=== PATIENT | male | born 1950 | race Hispanic/Latino ===

== ENCOUNTER → 2017-09-13 | Outpatient (CLI) | payer OTHER | END | disposition home or self-care (01) | LOC: RAH 09:02 | PROVIDERS: ATTEND Family Medicine | DX: R42 Dizziness and giddiness (principal) | CPT/HCPCS: 93306 ==

== ENCOUNTER 2021-03-24 05:50 | Day surgery (SDC) | payer MEDICARE ==
[~2021-03-24] VITALS: Ht 170.2 cm; Wt 165.6 kg
[~2021-03-24 05:50] MED LIST: RIVA20TA PO
[2021-03-24] MEDS ORDERED: 0.9%NACL 1000ML 1,000 ML IV ONE (06:18)
[2021-03-24 06:37] VITALS: BP 153/71
[2021-03-24] MEDS ORDERED: PROPOFOL 10 MG/ML 20ML VIAL IV ONE ×2 (07:31)
[2021-03-24] MEDS ORDERED: LIDOCAINE HCL 1% 20 ML VIAL ONE (07:31)
[2021-03-24 08:05] VITALS: BP 90/49
[2021-03-24 08:10] VITALS: BP 99/57
[2021-03-24 08:15] VITALS: BP 108/53
[2021-03-24 08:20] VITALS: BP 105/52
[2021-03-24 08:35] VITALS: BP 115/55
== END 2021-03-24 08:35 | disposition home or self-care (01) ==
LOC: ENDO 05:50 → DAH 05:50 → ENDO 08:35
PROVIDERS: ATTEND Internal Medicine Gastroenterology
DX: Z12.11 Encounter for screening for malignant neoplasm of colon (principal); Z20.822 Contact with and (suspected) exposure to COVID-19; K22.2 Esophageal obstruction; K63.5 Polyp of colon; K21.9 Gastro-esophageal reflux disease without esophagitis; K29.70 Gastritis, unspecified, without bleeding; K44.9 Diaphragmatic hernia without obstruction or gangrene; E11.9 Type 2 diabetes mellitus without complications; I25.10 Atherosclerotic heart disease of native coronary artery without angina pectoris; E78.5 Hyperlipidemia, unspecified; F32.9 Major depressive disorder, single episode, unspecified; F41.9 Anxiety disorder, unspecified; M19.90 Unspecified osteoarthritis, unspecified site; I48.20 Chronic atrial fibrillation, unspecified; E66.01 Morbid (severe) obesity due to excess calories; Z79.01 Long term (current) use of anticoagulants; Z79.84 Long term (current) use of oral hypoglycemic drugs; Z79.899 Other long term (current) drug therapy; Z98.890 Other specified postprocedural states; Z80.0 Family history of malignant neoplasm of digestive organs; Z95.1 Presence of aortocoronary bypass graft; Z86.010 Personal history of colon polyps
CPT/HCPCS: 43239; 43249; 45380; 45385; 82948 ×2; 87635; 88305; 88342; A4215 ×2; A4221; A4222; A4223; A4606; A4620; A4663; C9803; J2704 ×2; J7030

== ENCOUNTER → 2023-01-03 | Outpatient (CLI) | payer MEDICARE ==
[~2023-01-03] MED LIST changes: +LIDOCAINE HCL 4% LTA SOL 4 ML VIAL TP ONE
== END | disposition home or self-care (01) ==
LOC: WHH 11:01
PROVIDERS: ATTEND Nurse Practitioner Family
DX: I87.319 Chronic venous hypertension (idiopathic) with ulcer of unspecified lower extremity (principal); E11.622 Type 2 diabetes mellitus with other skin ulcer; L97.811 Non-pressure chronic ulcer of other part of right lower leg limited to breakdown of skin; I89.0 Lymphedema, not elsewhere classified; I48.20 Chronic atrial fibrillation, unspecified; I25.10 Atherosclerotic heart disease of native coronary artery without angina pectoris; E78.5 Hyperlipidemia, unspecified; M19.90 Unspecified osteoarthritis, unspecified site; K21.9 Gastro-esophageal reflux disease without esophagitis; E66.01 Morbid (severe) obesity due to excess calories; F41.9 Anxiety disorder, unspecified; F32.9 Major depressive disorder, single episode, unspecified; F17.210 Nicotine dependence, cigarettes, uncomplicated; Z68.43 Body mass index [BMI] 50.0-59.9, adult; Z95.1 Presence of aortocoronary bypass graft; Z86.010 Personal history of colon polyps; Z79.01 Long term (current) use of anticoagulants; Z79.84 Long term (current) use of oral hypoglycemic drugs; Z79.899 Other long term (current) drug therapy
CPT/HCPCS: G0463

== ENCOUNTER → 2024-03-09 | Outpatient (CLI) | payer OTHER ==
[~2024-03-09] MED LIST changes: -LIDOCAINE HCL 4% LTA SOL 4 ML VIAL TP ONE
== END | disposition home or self-care (01) ==
LOC: RAH 14:26
PROVIDERS: ATTEND Family Medicine
DX: R10.31 Right lower quadrant pain (principal)
CPT/HCPCS: 76882

== ENCOUNTER 2024-04-04 05:57 | Day surgery (SDC) | payer OTHER ==
[~2024-04-04] VITALS: Ht 170.2 cm; Wt 167.8 kg
[2024-04-04] VITALS (9 sets, daily range): BP systolic 99–153; BP diastolic 56–74; PULSE 67–80; RESP 15–17; TEMP 96.6–98
[2024-04-04] MEDS ORDERED: 0.9%NACL 1000ML 0 ML IV ONE (06:04)
[2024-04-04] MEDS ORDERED: 0.9%NACL 1000ML 1,000 ML IV ONE (06:04)
[2024-04-04] MEDS: 0.9%NACL 1000ML 1,000 ML IV ONE (07:51)
== END 2024-04-04 10:00 | disposition home or self-care (01) ==
LOC: ENDO 05:57 → DAH 05:57 → ENDO 10:00
PROVIDERS: ATTEND Internal Medicine Gastroenterology
DX: Z12.11 Encounter for screening for malignant neoplasm of colon (principal); D12.3 Benign neoplasm of transverse colon; K29.50 Unspecified chronic gastritis without bleeding; K22.2 Esophageal obstruction; K31.89 Other diseases of stomach and duodenum; R13.10 Dysphagia, unspecified; K44.9 Diaphragmatic hernia without obstruction or gangrene; I48.20 Chronic atrial fibrillation, unspecified; I25.10 Atherosclerotic heart disease of native coronary artery without angina pectoris; E11.9 Type 2 diabetes mellitus without complications; F41.9 Anxiety disorder, unspecified; J44.9 Chronic obstructive pulmonary disease, unspecified; F32.A Depression, unspecified; E66.9 Obesity, unspecified; E78.5 Hyperlipidemia, unspecified; M19.90 Unspecified osteoarthritis, unspecified site; Z95.1 Presence of aortocoronary bypass graft; Z80.0 Family history of malignant neoplasm of digestive organs; Z86.0100 Personal history of colon polyps, unspecified; Z79.899 Other long term (current) drug therapy
CPT/HCPCS: 45385; 43239; 43248; 82948; J7030; A4615; A4215 ×2; A4223; A4222; A4221; A4663; A4606

== ENCOUNTER 2024-07-07 14:24 | Emergency (ER) | payer OTHER ==
[~2024-07-07] VITALS: Ht 170.2 cm; Wt 169.6 kg
[2024-07-07] MEDS: NEOMY SULF/BACITRA/POLYMYXIN B 1 EACH PACKET TP STA (16:58)
--- NOTE | 2024-07-07 17:57 | HMCIMG ---
ELBOW 2VWS LT INDICATION: left elbow pain TECHNIQUE: ELBOW 2VWS LT. FINDINGS/IMPRESSION: No displaced fracture or dislocation is seen. Correlate clinically. There is no joint effusion or soft tissue swelling. No radiopaque foreign body is identified.
--- NOTE | 2024-07-07 18:32 | ERN ---
ED Note History of Present Illness Stated Complaint: WOUND CHECK Chief Complaint: Wound Check Time Seen by MD: 16:58 Time Seen by Midlevel: 17:00 Dictation: 73-year-old male with a history of hypertension diabetes and cholesterol coming in for mechanical fall landing on his left side, patient says he hit his left elbow against the wall and now has a skin tear and wanted to be evaluated. Denies any head injury, no LOC, patient was moving all extremities in triage assessment. Allergies: Coded Allergies: No Known Drug Allergies (Unverified Allergy, Unknown, 10/20/17) Home Meds Reported Medications Rivaroxaban (Xarelto) 20 Mg Tablet, 20 MG PO DAILY, TAB 03/23/21 Past Medical History Past Medical History: Arthritis, Heart Disease, Hypertension Surgical History: CABG Surgical History Other: RT SHOULDER SX Review of System Dictation Constitutional: Negative for fever,chills, and weight loss Eyes: Negative for injury, pain,redness, and discharge ENT: Negative for injury,pain or swelling Cardiovascular: Negative for chest pain, palpitations, and edema Respiratory: Negative for shortness of breath, cough, and wheezing, Abdomen/GI: Negative for abdominal pain, nausea, vomiting, diarrhea, and constipation Back: Negative for injury and pain : Negative for injury, bleeding and discharge MS/Extremity: Negative for injury and deformity skin tear to the left elbow Skin: Negative for rash, and discoloration Neuro: Negative for headache, weakness, numbness, tingling, and seizure Psych: Negative for suicide ideation, homicidal ideation, and hallucinations Review of Systems: was completed Initial Vital Sign VS Vital Signs Date Time Temp Pulse Resp B/P (MAP) Pulse Ox O2 Delivery O2 Flow Rate FiO2 07/07/24 15:11 98.2 76 18 153/69 97 Room Air 0 07/07/24 19:53 21 Physical Exam Dictation General: awake, alert, NAD Head/Face: Normocephalic, atraumatic Eyes: PERRL, EOMI, vision at baseline ENT: oral cavity clear, TMs clear, no signs of infection Neck: Trachea midline, supple, no nuchal rigidity Cardiovascular: RRR, normal S1/S2, No MRGs, no JVD Respiratory: CTAB, no respiratory distress, No rales or wheezes Abdomen: Soft, non-tender, non-distended, normal bowel sounds, no guarding or rebound. Skin: Warm, dry, normal turgor, no rash skin tear to the left upper forearm MS/Extremity: Pulses equal, no cyanosis, neurovascular intact, FROM Neuro: COAx4, GCS 15, strength 5/5, CN 2-12 intact, normal cerebellar exam, normal gait, Psych: Normal behavior, mood, and affect normal Results (Laboratory/Radiology) X-RAY Comment: [facility] [id number] [place] [address] IMAGING REPORT Signed PATIENT: KARENA PETTY MR#: [id number] : 1950 SEX: M AGE: 73 LOCATION: [facility] ORDER 01 STATUS: [facility] REPORT#: [id number] SERVICE 00 REASON: left elbow pain ORDERING PHYSICIAN: ALFONSO MATHIS NP PROCEDURE: [id number] - ELBOW 2VWS LT ELBOW 2VWS LT INDICATION: left elbow pain TECHNIQUE: ELBOW 2VWS LT. FINDINGS/IMPRESSION: No displaced fracture or dislocation is seen. Correlate clinically. There is no joint effusion or soft tissue swelling. No radiopaque foreign body is identified. DICTATED BY: ZECHARIAH ALBARRAN MD DATE: 07/07/241754 ELECTRONICALLY SIGNED BY: ZECHARIAH ALBARRAN MD DATE: 07/07/241756 ED Course ED Course Orders Procedure Category Date Status Time Neomy PHA 07/07/24 Complete Sulf/Bacitra/Polymyxin 16:58 *Nursing CPOE 07/07/24 Transmitted Communication: 16:58 Elbow 2vws Lt RAD 07/07/24 Resulted 17:01 Current Medications Medications (Trade) Dose Ordered Sig/Gianni Route PRN Reason Start Time Stop Time Status Last Admin Dose Admin Neomycin/ Polymyxin/ Bacitracin (Triple Antibiotic Ointment) 1 appl ONCE STAT TP 07/07/24 16:58 07/07/24 17:00 DC 07/07/24 16:58 Vital Signs Date Time Temp Pulse Resp B/P (MAP) Pulse Ox O2 Delivery O2 Flow Rate FiO2 07/07/24 19:53 97.7 72 18 147/63 100 Room Air* 0 21 07/07/24 15:11 98.2 76 18 153/69 97 Room Air 0 Medical Decision Making MDM MDM: 73-year-old male with a history of hypertension diabetes and cholesterol coming in for mechanical fall landing on his left side, patient says he hit his left elbow against the wall and now has a skin tear and wanted to be evaluated. Denies any head injury, no LOC, patient was moving all extremities in triage assessment. On physical exam patient has clear bilateral lung sounds, abdomen is soft and nondistended, no obvious deformities. Patient has full range of motion to all extremities. Neurologically intact. X-ray of the elbow shows no acute findings. Triple antibiotic and nonadherent bandage applied to the patient. PRIOR TO WOUND CARE AND DISCHARGE PATIENT NOW BEGAN TO COMPLAIN OF LEF T WRIST PAIN, PATIENT IF HE WOULD LIKE A X-RAY HE SAID FOR WHAT SO I CAN BE HERE 6 HOURS, REFUSED X-RAY. Educated on wound care and to follow up with PCP in 1-2 days. Differential diagnosis: Skin tear, elbow dislocation, elbow fracture, elbow contusion Rationale: Tests considered and ordered secondary to shared decision making include: Previous outside records reviewed: Old ER visits. Risk of complication and/or morbidity or mortality of patient management: None Medications-Per medication reconciliation Need for hospitalization: Patient does not meet criteria for hospitalization. Need for emergency major/minor surgery: No There are no social concerns with this patient. Prescription drug management Prescriptions will include symptomatic care Patient's prior external medical records from other ER visits were reviewed by me as indicated. Prior testing and results from previous visits were reviewed. Prior tests were taken into account with medical decision making and resource utilization, independent historian/historians were used to obtain complete medical history. I independently interpreted the test that were performed, results were reviewed by me and considered findings on radiology if ordered. Medical management and examination interpretation discussions were had by me with other qualified healthcare professionals as indicated for the patient's care. DX & DISP Disposition: Discharge Departure Impression: Primary Impression: Elbow contusion Additional Impression: Skin tear of elbow without complication Condition: Stable Additional Instructions: You can apply triple antibiotic [id number] as needed to the skin tear. Cleaned with soap and water. Maintain dry. Follow up with PCP in 1-2 days. Referrals: ISAIAH PURI MD (PCP) I have reviewed the case, and I agree with, Diagnosis and Plan ALFONSO MATHIS NP Jul 07, 2024 18:32
--- NOTE | 2024-07-07 19:48 | NUR ---
AILYN APPLIED. NON ADHERENT DRESSING AND KERLEX ORDERED. PT C/O SWELLING TO LEFT WRIST. DB INFORMED
[2024-07-07 19:53] VITALS: BP 147/63; PULSE 72; RESP 18; TEMP 97.7; O2SAT 100
--- NOTE | 2024-07-07 19:53 | NUR ---
T UPSET AND AGGITATED ABOUT TEREATMENT AND WAIT TIME
--- NOTE | 2024-07-07 19:55 | NUR ---
PER DB, OK TO DISCHARGE PATIENT
== END 2024-07-07 19:57 | disposition home or self-care (01) ==
LOC: EDH 14:24
DX: S51.012A Laceration without foreign body of left elbow, initial encounter (principal); M19.90 Unspecified osteoarthritis, unspecified site; I10 Essential (primary) hypertension; Z79.01 Long term (current) use of anticoagulants; Z95.1 Presence of aortocoronary bypass graft; W18.39XA Other fall on same level, initial encounter; Y93.89 Activity, other specified; Y92.89 Other specified places as the place of occurrence of the external cause; Y99.8 Other external cause status
CPT/HCPCS: 73070; 99284

== ENCOUNTER → 2024-11-30 | Outpatient (CLI) | payer OTHER ==
[2024-11-30 15:29] LABS: CREATININE 0.8 mg/dL (0.5-1.3)
== END | disposition home or self-care (01) ==
LOC: LAB 14:40
PROVIDERS: ATTEND Student in an Organized Health Care Education/Training Program
DX: K42.9 Umbilical hernia without obstruction or gangrene (principal)
CPT/HCPCS: 36415; 82565; 84520

== ENCOUNTER → 2024-12-06 | Outpatient (CLI) | payer OTHER ==
[~2024-12-06] MED LIST changes: +IOHEXOL 350 MG/ML 100ML INFUS..BTL IV ONE
--- NOTE | 2024-12-06 09:37 | HMCIMG ---
CT ABDOMEN/PELVIS W/CONTRAST HISTORY: Umbilical hernia COMPARISON: None TECHNIQUE: Multiple sequential axial images of the abdomen and pelvis were obtained from the dome of the diaphragm through symphysis pubis. Patient was not given contrast through intravenous route. Oral contrast was not given. FINDINGS: No pleural effusion is seen bilaterally. There is no evidence of parenchymal disease or pulmonary nodule of the visualized lower lungs. Degenerative changes of the thoracolumbar spine are present. The heart is not enlarged. The study is limited due to patient's large body habitus. There is hypodense nodule in the right hepatic lobe measuring 2.8 cm the differential diagnosis include hemangioma with mass lesion not excluded. Gallstone is seen in the gallbladder. There is mild diverticulosis. There are extensive subcutaneous soft tissue stranding in the medial aspect of the right upper thigh cellulitis cannot excluded. There is mild scoliosis. The liver, spleen, adrenal glands and pancreas are otherwise unremarkable. There is no evidence of hydronephrosis bilaterally. No evidence of renal stone is seen. Fecal material is seen in the colon. There are normal size retroperitoneal and mesenteric lymph nodes. No ascites is seen. Atherosclerotic changes are present. Pelvic sidewalls are symmetric bilaterally. Bladder is well distended without wall thickening. IMPRESSION: 1. The study is limited due to patient's large body habitus. There is hypodense nodule in the right hepatic lobe measuring 2.8 cm the differential diagnosis include hemangioma with mass lesion not excluded. Gallstone is seen in the gallbladder. There is mild diverticulosis. There are extensive subcutaneous soft tissue stranding in the medial aspect of the right upper thigh cellulitis cannot excluded. There is mild scoliosis. CT was performed with one or more following dose reduction techniques: automated exposure control, adjustment of the mA and kv according to patient's size, or use of a iterative reconstruction technique.
== END | disposition home or self-care (01) ==
LOC: RAH 07:34
PROVIDERS: ATTEND Student in an Organized Health Care Education/Training Program
DX: K57.90 Diverticulosis of intestine, part unspecified, without perforation or abscess without bleeding (principal); K80.20 Calculus of gallbladder without cholecystitis without obstruction; K42.9 Umbilical hernia without obstruction or gangrene; L03.119 Cellulitis of unspecified part of limb; M47.815 Spondylosis without myelopathy or radiculopathy, thoracolumbar region; I70.0 Atherosclerosis of aorta; M41.9 Scoliosis, unspecified
CPT/HCPCS: 74177; Q9967

== ENCOUNTER 2024-12-20 09:00 | Observation (INO) | payer OTHER ==
[~2024-12-20] VITALS: Ht 170.2 cm; Wt 171.9 kg
[2024-12-20 09:37] LABS: IMMATURE GRANULOCYTE ABSOLUTE 0.01 K/uL (0-1); NUCLEATED RED BLOOD CELLS 0.0 % (0.0-0.19); PLATELET COUNT (AUTO) 175 K/uL (130-400); RED BLOOD CELL COUNT(AUTO) 3.92 MIL/uL (4.50-6.20); RED CELL DISTRIBUTION WIDTH 15.0 % (11.0-15.5); WHITE BLOOD COUNT (AUTO) 6.0 K/uL (4.8-10.8)
[2024-12-20 09:41] VITALS: BP 156/59; PULSE 67; RESP 18; TEMP 97.8
[2024-12-20 09:47] LABS: CREATININE 0.8 mg/dL (0.5-1.3); GLOMERULAR FILTR. RATE CALC 92.0 mL/min (>90); GLUCOSE,RANDOM 125.0 mg/dL (70-105); SODIUM SERUM 142.0 mmol/L (136-145); UREA NITROGEN, BLOOD 18.0 mg/dL (7-18)
[2024-12-20 09:50] LABS: INR 1.02 (0.85-1.15)
[2024-12-20] MEDS ORDERED: ATOR20TA65 PO (09:58)
[2024-12-20] MEDS ORDERED: APIX5TAB PO (09:58)
--- NOTE | 2024-12-20 12:10 | EKG ---
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
--- NOTE | 2024-12-20 13:58 | NUR ---
REPORT REPORTED TO DR PRICE/MARGARETH PT ON ELIQUIS AND DOES NOT RECALL STOP DATE. RECEIVED INSTRUCTIONS TO HAVE PT HOLD STARTING TODAY. PT NOTIFIED AND VOICED UNDERSTANDING
[2024-12-24] VITALS (19 sets, daily range): BP systolic 126–174; BP diastolic 66–126; PULSE 68–90; RESP 15–21; TEMP 97.2–98.1
[2024-12-24] MEDS: LACTATED RINGERS 1000ML 1,000 ML IV ONE (09:38)
[2024-12-24] MEDS ORDERED: LIDOCAINE HCL MPF 1% 5ML VIAL ONE (12:07)
[2024-12-24] MEDS ORDERED: MIDAZOLAM HCL 1 MG/ML 2ML VIAL ONE (12:08)
--- NOTE | 2024-12-24 13:41 | OP ---
Operative Note: DATE OF PROCEDURE: 12/24/24 SURGEON: JUAN PRICE MD PRESIDENT & FOUNDER: [] ANESTHESIA: general ANESTHESIOLOGIST/COMPRESSOR STATION ENGINEER: Chacho Uriarte PREOPERATIVE DIAGNOSIS: Right inner thigh lipoma left inner thigh lipoma POSTOPERATIVE DIAGNOSIS: Right inner thigh lipoma measuring 30 x 25 cm in size, left inner thigh lipoma measuring 23 x 20 cm in size SYNOPSIS: [] PROCEDURE: Excision of right inner thigh lipoma and excision of excess skin of right inner thigh, left inner thigh lipoma excision and excess skin removal of left inner thigh ESTIMATED BLOOD LOSS: 20 cc INDICATIONS: Patient with very large inner thigh lipomas causing rubbing on ulcerations that have caused cellulitis multiple times Specimens removed, right thigh lipoma measuring 30 x 25 cm in size, left inner thigh lipoma measuring 23 x 20 cm in size Devices left in place: 10 [place] flat drain x2 one on each side. Medela skin suction dressings DESCRIPTION OF PROCEDURE: The patient is brought to the operating room placed on the operating table in a supine position. Once general endotracheal anesthesia was achieved patient's lower extremities are frog-leg then prepped and draped in circumferential fashion from the waist down to the toes. We then proceeded to create an elliptical incision around the lipoma. Started on the right side and went through skin subcutaneous tissue down to fascia and excised the lipoma off of the fascia using the Bovie and device. Once completely excised we measured it at 30 x 25 cm in size. We will obtain hemostasis and irrigated the defect. Close fascia with running 0 Vicryl suture. Subcutaneous tissues then closed with interrupted 0 Vicryl and 2-0 Vicryl. A drain was placed under the fascial layer 10 [place] and brought out through the lateral aspect of the incision secured to the skin with a 2-0 nylon suture. The skin is then closed with a running 3-0 Monocryl in running fashion. And medulla dressing is applied over top. We then proceeded to create an elliptical incision around the lipoma on on the left side and went through skin subcutaneous tissue down to fascia and excised the lipoma off of the fascia using the Bovie and device. Once completely excised we measured it at 30 x 25 cm in size. We will obtain hemostasis and ir rigated the defect. Close fascia with running 0 Vicryl suture. Subcutaneous tissues then closed with interrupted 0 Vicryl and 2-0 Vicryl. A drain was placed under the fascial layer 10 [place] and brought out through the lateral aspect of the incision secured to the skin with a 2-0 nylon suture. The skin is then closed with a running 3-0 Monocryl in running fashion. And medulla dressing is applied over top. JUAN PRICE MD Dec 24, 2024 13:41
[2024-12-24] MEDS ORDERED: NEOSTIGMINE METHYLSULFATE 1MG/ML IV ONE (15:02)
[2024-12-24] MEDS ORDERED: GLYCOPYRROLATE 0.2 MG/ML 5 ML VIAL ONE (15:02)
[2024-12-24] MEDS ORDERED: SUGAMMADEX SODIUM 200 MG/2 ML VIAL IV ONE (15:13)
[2024-12-25 01:49] VITALS: O2SAT 97
[2024-12-25 03:55] VITALS: BP 132/71; PULSE 84; RESP 22; TEMP 97.7
[2024-12-25 06:09] LABS: CREATININE 0.8 mg/dL (0.5-1.3); GLOMERULAR FILTR. RATE CALC 92.0 mL/min (>90); GLUCOSE,RANDOM 150.0 mg/dL (70-105); SODIUM SERUM 136.0 mmol/L (136-145); UREA NITROGEN, BLOOD 13.0 mg/dL (7-18)
[2024-12-25 06:40] LABS: IMMATURE GRANULOCYTE ABSOLUTE 0.04 K/uL (0-1); NUCLEATED RED BLOOD CELLS 0.0 % (0.0-0.19); PLATELET COUNT (AUTO) 190 K/uL (130-400); RED BLOOD CELL COUNT(AUTO) 3.92 MIL/uL (4.50-6.20); RED CELL DISTRIBUTION WIDTH 14.6 % (11.0-15.5); WHITE BLOOD COUNT (AUTO) 10.0 K/uL (4.8-10.8)
[2024-12-25 08:00] VITALS: BP 149/63; PULSE 103; RESP 20; TEMP 97.5
[2024-12-25 09:37] LABS: APPEARANCE,URINE CLEAR (CLEAR); GLUCOSE, URINE (UA) NEGATIVE (NEGATIVE); LEUKOCYTE ESTERASE ,URINE NEGATIVE Leu/uL (NEGATIVE); NITRATE,URINE NEGATIVE (NEGATIVE); OCCULT BLOOD,URINE NEGATIVE (NEGATIVE)
[2024-12-25 09:41] LABS: ADD UA MICROSCOPIC NO
--- NOTE | 2024-12-25 10:48 | NUR ---
DCP: HOME Pt currently lives with sps. Pt does not have any DME, home health, or provider services. Pt is able to complete ADLs independently. PCP is Dr. Freeman Herrera and uses [facility] for any RX needs. At [place] pt will want to go home and family can assist with transportation. Addendum: 12/25/24 at 1051 by WESLEY RUBIO SS Amended: Links added.
[2024-12-25 11:49] VITALS: BP 131/57; PULSE 67; RESP 20; TEMP 98.2
--- NOTE | 2024-12-25 14:35 | DS ---
Discharge Summary HOSPITAL COURSE SUMMARY: [] This is a 74-year-old male postop day one for bilateral excisions of the thigh lipomas and removal of the excess skin by Dr. Desai Interval history: This 74-year-old male seen in his room resting Wound vacs in place to both surgical sites of lower extremity EAMON is and drains with serous fluid noted. Patient overall doing well no reports of discomfort Vacs with good seals WBCs 10 with a hemoglobin of 13 No acute concerns reported by patient at this time Physical exam General: Awake alert and oriented Heart: Regular rate and rhythm} Lungs: Clear to auscultation no distress Abdomen: [Soft, nontender, nondistended Bilateral Lower extremity inner thighs with wound vacs in place EAMON drains in p lace with serous output Assessment : This is a 74-year-old male postop day one for bilateral excisions of the thigh lipomas and removal of the excess skin by Dr. Desai Plan: DISCHARGE INSTRUCTIONS: [] From surgical standpoint patient cleared for discharge home today Patient instructed on appropriate drain care Patient to be discharged with a wound VAC in place where it will be removed in one week with Dr. Desai is office If any concerns for complications present patient to present sooner Dr. Desai has been updated in patient's status and patient to be cleared for discharge today. Thank you MARBLEIZER(S): [] Home Meds Reported Medications Atorvastatin Calcium (Atorvastatin Calcium) 20 Mg Tablet, 20 MG PO HS, TAB 12/20/24 Apixaban (Eliquis) 5 Mg Tablet, 5 MG PO BID, TAB 12/20/24 Discontinued Reported Medications Rivaroxaban (Xarelto) 20 Mg Tablet, 20 MG PO DAILY, TAB 03/23/21 Time spent arranging discharge: 1-30 minutes HIEU PURI Jr. Dec 25, 2024 14:34
== END 2024-12-25 18:55 | disposition home or self-care (01) ==
LOC: DAHIP 12-24 08:38 → EDSTATUS 12-24 09:00 → 3CH 12-24 16:40
PROVIDERS: ADMIT Student in an Organized Health Care Education/Training Program; ATTEND Student in an Organized Health Care Education/Training Program
DX: D17.23 Benign lipomatous neoplasm of skin and subcutaneous tissue of right leg (principal); D17.24 Benign lipomatous neoplasm of skin and subcutaneous tissue of left leg; E88.2 Lipomatosis, not elsewhere classified; L98.7 Excessive and redundant skin and subcutaneous tissue; E78.5 Hyperlipidemia, unspecified; K42.9 Umbilical hernia without obstruction or gangrene; E66.01 Morbid (severe) obesity due to excess calories; Z79.899 Other long term (current) drug therapy; Z86.2 Personal history of diseases of the blood and blood-forming organs and certain disorders involving the immune mechanism; Z68.43 Body mass index [BMI] 50.0-59.9, adult
CPT/HCPCS: 80048 ×2; 85025 ×2; 85610; 85730; 36415 ×2; 93005; 11406; 81003; A6260; J1100; G0378 ×25; G0379; A4223 ×2; A4663; J7120 ×2; J0690 ×3; J3010 ×2; J3490 ×4; J2250; J2704; J2405; J2710; A6204; A4215; A4213; A4222; A4221; A4216; A4450

== ENCOUNTER 2025-01-13 13:44 | Inpatient (IN) | payer OTHER ==
[~2025-01-13] VITALS: Ht 167.6 cm; Wt 158.8 kg
[~2025-01-13 13:44] MED LIST changes: +APIX5TAB PO; +ATOR20TA65 PO; -IOHEXOL 350 MG/ML 100ML INFUS..BTL IV ONE; -RIVA20TA PO
--- NOTE | 2025-01-13 13:54 | ERN ---
General Chief Complaint: Post-Op Problem Stated Complaint: POST OP PROBLEM Time Seen by MD: 13:52 Source: patient History of Present Illness Initial Comments Patient is a 74-year-old gentleman coming in complaining of abdominal pain. Patient states that the pain began two days ago. Pain is intense distributed throughout abdominal region. Allergies: Coded Allergies: No Known Drug Allergies (Unverified Allergy, Unknown, 10/20/17) Home Meds Reported Medications Atorvastatin Calcium (Atorvastatin Calcium) 20 Mg Tablet, 20 MG PO HS, TAB 12/20/24 Apixaban (Eliquis) 5 Mg Tablet, 5 MG PO BID, TAB 12/20/24 Past Medical History Past Medical History: A-Fib, Heart Disease Past Surgical History: CABG Surgical History Other: LIPOMA REMOVAL BILAT THIGH ROS Dictation CONSTITUTIONAL: No chills, no fever, no weakness, no diaphoresis, no malaise. HEAD/FACE: No signs of trauma. EENT: No eye pain, no blurred vision, no tearing, no double vision, no ear pain, no ear discharge, no nose pain, no nasal congestion, no throat pain, no throat swelling, no mouth pain. RESPIRATORY: No cough, no orthopnea, no SOB, no stridor, no wheezing. CARDIOVASCULAR: No chest pain, no edema, no palpitations, no syncope. GASTROINTESTINAL/ABDOMINAL: abdominal pain, no constipation, no diarrhea, no nausea, no vomiting. GENITOURINARY: No abnormal discharge, no dysuria, no frequent urination, no hematuria. No complaints of pain in the genitals. MUSCULOSKELETAL: No back pain, no gout, no joint pain, no joint swelling, no muscle pain, no muscle stiffness, no neck pain. INTEGUMENTARY: No change in color, no change in hair/nails, no dryness, no lesion, no lumps, no rash. NEUROLOGICAL/PSYCH: No anxiety, not depressed, no emotional problem, no headache, no numbness, no pre-existing deficit, no history of seizures, no tremors, no weakness. HEMATOLOGIC/LYMPHATIC: Not anemic, no history of blood clots, no apparent bleeding, no bruising, glands not swollen. All Systems Negative, Except as Noted. Physical Exam Physical Exam Dictation VITAL SIGNS: Reviewed. GENERAL APPEARANCE: Alert, oriented x3, no acute distress, obese. HEAD AND FACE: Non-traumatic. EYES: PERRL, pink conjunctivas, eyelid no trauma, anterior chamber clear. EARS: Pinnas intact and no signs of trauma or erythema. Ear canals clear and no discharge. TMs no erythema. NOSE: No discharge, no bleeding. OROPHARYNX: Mouth normal, teeth no caries, tongue pink. Pharynx clear, no erythema. Tonsils no exudates, no abscesses noted. Mucous membrane moist. NECK: Supple, non-tender, no thyromegaly, no masses, no JVD, no bruits. BREAST: Deferred. CHEST: No tenderness, no crepitus, no paradoxical movement, no retractions. LUNGS: Clear, well-ventilated, symmetric, no rales, no wheezing, no rhonchi, no stridor, good breath sounds bilaterally. HEART: Regular rate, regular rhythm, no murmur, no gallops. VASCULAR: No peripheral edema. ABDOMEN: Soft, positive bowel sounds, nondistended, no guarding, nontender, no rebound, no masses no hepatomegaly, no splenomegaly, no Matthews's sign, no hernias. RECTAL: Deferred. GENITAL: Deferred. NEUROLOGICAL: Normal speech, gross motor function intact, gross sensory function intact. MUSCULOSKELETAL: Neck nontender, full range of motion, back nontender, full range of motion. EXTREMITIES: Nontender, full range of motion. SKIN: Color pink, dry, no turgor, no rash, no lacerations, no abrasions, no contusions. LYMPHATICS: Deferred. Results Laboratory and Microbiology Lab and Micro Result Laboratory Tests Test 01/13/25 14:21 01/13/25 14:47 White Blood Count 8.0 K/uL (4.8-10.8) Red Blood Count 4.02 MIL/uL (4.50-6.20) L Hemoglobin 13.4 g/dL (14.0-18.0) L Hematocrit 41.3 % (42-54) L Mean Corpuscular Volume 102.7 fL (79-99) H Mean Corpuscular Hemoglobin 33.3 pg (27.0-33.0) H Mean Corpuscular Hemoglobin Concent 32.4 g/dL (32.0-36.0) Red Cell Distribution Width 14.2 % (11.0-15.5) Platelet Count 267 K/uL (130-400) Mean Platelet Volume 10.0 fL (7.5-10.5) Immature Granulocyte % (Auto) 0.2 % (0-1) Neutrophils (%) (Auto) 80.7 % (40.0-77.0) H Lymphocytes (%) (Auto) 13.0 % (21.0-51.0) L Monocytes (%) (Auto) 5.7 % (3.0-13.0) Eosinophils (%) (Auto) 0.2 % (0.0-8.0) Basophils (%) (Auto) 0.2 % (0.0-5.0) Neutrophils # (Auto) 6.5 K/uL (1.8-7.7) Lymphocytes # (Auto) 1.0 K/uL (1.0-4.8) Monocytes # (Auto) 0.5 K/uL (0.1-1.0) Eosinophils # (Auto) 0.02 K/uL (0.00-0.70) Basophils # (Auto) 0.02 K/uL (0.00-0.20) Absolute Immature Granulocyte (auto 0.02 K/uL (0-1) Nucleated Red Blood Cells 0.0 % (0.0-0.19) Sodium Level 141 mmol/L (136-145) Potassium Level 4.9 mmol/L (3.5-5.1) Chloride Level 103 mmol/L (101-111) Carbon Dioxide Level 32 mmol/L (21-32) Blood Urea Nitrogen 19 mg/dL (7-18) H Creatinine 0.9 mg/dL (0.5-1.3) Glomerular Filtration Rate Calc 89 mL/min (>90) Random Glucose 175 mg/dL (70-105) H Total Calcium 9.2 mg/dL (8.5-10.1) Urine Color YELLOW (YELLOW) Urine Appearance HAZY (CLEAR) Urine pH 5.5 (5.0-8.0) Urine Specific Bailey 1.032 (1.001-1.031) Urine Protein 100 mg/dL (NEGATIVE) H Urine Glucose (UA) NEGATIVE mg/dL (NEGATIVE) Urine Ketones 5 mg/dL (NEGATIVE) H Urine Occult Blood LARGE (NEGATIVE) H Urine Nitrate NEGATIVE (NEGATIVE) Urine Bilirubin MODERATE mg/dL (NEGATIVE) H Urine Urobilinogen 1.0 mg/dL (0.2-1.0) Urine Leukocyte Esterase NEGATIVE Vitor/uL Urine RBC 26-50 /HPF (0-1) H Urine WBC 0-1 /HPF (0-1) Urine Squamous Epithelial Cells Rare /HPF (0-2) Urine Amorphous Crystals (Auto) Few /LPF (None Seen) H Urine Bacteria Moderate /HPF (None Seen) H Labs Reviewed?: Yes EKG/XRAY/US/CT/MRI CT Scan Comment IMAGING REPORT Signed PATIENT: KARENA PETTY MR#: [id number] : 1950 SEX: M AGE: 74 LOCATION: [facility] ORDER 14 STATUS: [facility] REPORT#: [id number] SERVICE REASON: lower abd pain ORDERING PHYSICIAN: CARLOS COOK MD PROCEDURE: ABD PEL WO - CT ABDOMEN/PELVIS W/O CONTRAST EXAM: CT abdomen and pelvis without contrast HISTORY: Lower abdominal pain TECHNIQUE: Multiple axial CT slices through the abdomen and pelvis without contrast. Coronal and sagittal reconstructions were performed. CT scans are performed using one of these three dose reduction techniques: automated exposure control, adjustment of the mA and/or kV according to patient size, or use of iterative reconstruction techniques. COMPARISON: 12/06/2024 FINDINGS: Lung bases are clear. Small hiatal hernia. No hepatic lesion. Multiple gallstones noted. Spleen is normal. Fatty infiltration of the pancreas. Adrenal glands are normal. Right perinephric stranding. Mild right-sided hydronephrosis. 2 mm stone seen in the distal right ureter causing mild hydronephrosis. Bladder is decompressed by Swanson. No free fluid. No pneumoperitoneum. No bowel dilatation. Appendix is normal. No abdominal/pelvic lymphadenopathy. Vascular calcifications. Degenerative changes. IMPRESSION: Tiny stone seen in the distal right ureter causing mild hydronephrosis. /[place] DICTATED BY: KEVIN ROLAND MD DATE: 01/13/251827 ELECTRONICALLY SIGNED BY: KEVIN ROLAND MD DATE: 01/13/251827 [facility] MDM: Differential diagnosis: Post surgical pain, ureterolithiasis, abdominal pain, prostate enlargement, Rationale: Tests considered and ordered secondary to shared decision making include: labs, ECG and radiology Previous outside records reviewed: Old ER visits. Risk of complication and/or morbidity or mortality of patient management: None Medications-Per medication reconciliation Need for hospitalization: Patient does meet criteria for hospitalization. Need for emergency major/minor surgery: No There are no social concerns with this patient. Prescription drug management Prescriptions will include symptomatic care Patient's prior external medical records from other ER visits were reviewed by me as indicated. Prior testing and results from previous visits were reviewed. Prior tests were taken into account with medical decision making and resource utilization, independent historian/historians were used to obtain complete medical history. I independently interpreted the test that were performed, results were reviewed by me and considered findings on radiology if ordered. Medical management and examination interpretation discussions were had by me with other qualified healthcare professionals as indicated for the patient's care. Patient will be admitted under the care of hospitalist group for ongoing management of abdominal pain with ureterolithiasis. ED Course Orders Procedure Category Date Status Time Cbc With Differential LAB 01/13/25 Complete 13:57 Basic Metabolic Panel LAB 01/13/25 Complete 13:57 Urinalysis LAB 01/13/25 Complete W/Microscopic 13:57 Ct Abdomen/Pelvis W/O CT 01/13/25 Resulted Contrast 15:14 Culture Urine JÚNIOR 01/13/25 In Process 15:31 Ketorolac PHA 01/13/25 In Process Tromethamine 30mg/Ml 19:00 0.9%Nacl 1000ml (Ns PHA 01/13/25 In Process 1000ml) 19:00 Current Medications Medications (Trade) Dose Ordered Sig/Gianni Route PRN Reason Start Time Stop Time Status Last Admin Dose Admin Ketorolac Tromethamine (toRADol) 30 mg ONCE ONCE IVP 01/13/25 19:00 01/13/25 19:01 Sodium Chloride 1,000 ml @ 0 mls/hr ONCE ONCE IV 01/13/25 19:00 01/13/25 19:01 Vital Signs Date Time Temp Pulse Resp B/P (MAP) Pulse Ox O2 Delivery O2 Flow Rate FiO2 01/13/25 14:54 98.1 60 18 142/62 98 Room Air* 0 21 01/13/25 13:47 97.5 60 18 140/65 96 Room Air 0 DX & DISP Disposition: Inpatient Decision to Admit Time: 18:54 Departure Impression: Primary Impression: Ureterolithiasis Additional Impression: Abdominal pain Condition: Stable Referrals: ISAIAH PURI MD (PCP) CARLOS COOK MD Jan 13, 2025 13:53
[2025-01-13 14:36] LABS: IMMATURE GRANULOCYTE ABSOLUTE 0.02 K/uL (0-1); NUCLEATED RED BLOOD CELLS 0.0 % (0.0-0.19); PLATELET COUNT (AUTO) 267 K/uL (130-400); RED BLOOD CELL COUNT(AUTO) 4.02 MIL/uL (4.50-6.20); RED CELL DISTRIBUTION WIDTH 14.2 % (11.0-15.5); WHITE BLOOD COUNT (AUTO) 8.0 K/uL (4.8-10.8)
[2025-01-13 14:41] LABS: CREATININE 0.9 mg/dL (0.5-1.3); GLOMERULAR FILTR. RATE CALC 89.0 mL/min (>90); GLUCOSE,RANDOM 175.0 mg/dL (70-105); SODIUM SERUM 141.0 mmol/L (136-145); UREA NITROGEN, BLOOD 19.0 mg/dL (7-18)
[2025-01-13 15:12] LABS: GLUCOSE, URINE (UA) NEGATIVE (NEGATIVE); LEUKOCYTE ESTERASE ,URINE NEGATIVE Leu/uL (NEGATIVE); NITRATE,URINE NEGATIVE (NEGATIVE); OCCULT BLOOD,URINE LARGE (NEGATIVE)
[2025-01-13 15:16] LABS: APPEARANCE,URINE HAZY (CLEAR)
[2025-01-13 15:27] LABS: SQUAMOUS EPITHELIAL CELL,UR Rare /HPF (0-2)
--- NOTE | 2025-01-13 17:29 | HMCIMG ---
EXAM: CT abdomen and pelvis without contrast HISTORY: Lower abdominal pain TECHNIQUE: Multiple axial CT slices through the abdomen and pelvis without contrast. Coronal and sagittal reconstructions were performed. CT scans are performed using one of these three dose reduction techniques: automated exposure control, adjustment of the mA and/or kV according to patient size, or use of iterative reconstruction techniques. COMPARISON: 12/06/2024 FINDINGS: Lung bases are clear. Small hiatal hernia. No hepatic lesion. Multiple gallstones noted. Spleen is normal. Fatty infiltration of the pancreas. Adrenal glands are normal. Right perinephric stranding. Mild right-sided hydronephrosis. 2 mm stone seen in the distal right ureter causing mild hydronephrosis. Bladder is decompressed by Swanson. No free fluid. No pneumoperitoneum. No bowel dilatation. Appendix is normal. No abdominal/pelvic lymphadenopathy. Vascular calcifications. Degenerative changes. IMPRESSION: Tiny stone seen in the distal right ureter causing mild hydronephrosis. /[place]
--- NOTE | 2025-01-13 18:55 | HP ---
History of Present Illness Reason for Visit: abdominal pain History of Present Illness Mr. Sheffield is a 74 year male that was seen and examined today on 01/13/2025. Patient is a good historian of personal health Patient reports that he came to the emergency department with a chief complaint of abdominal pain. Onset was two days ago. Location is suprapubic. Duration is on and off. Character is described as cramping. There was no alleviating factors. There was no aggravating factors. Patient denies any associated nausea, vomiting, diarrhea. Today in the emergency department CBC unremarkable, chemistry unremarkable, urinalysis shows RBC 26-50 per high-powered microscopy field. CT of abdomen and pelvis shows cholelithiasis without cholecystitis. Perinephric stranding, 2 mm stone in the right ureter, mild right hydronephrosis. Emergency room physician recommended that patient be admitted for this reason. Past Medical History Patient History: Carcinomas SISTER Cardiovascular disease SON Diabetes mellitus SON Hypertension SON ADDITIONAL PAST MEDICAL HISTORY: [AFib on chronic anticoagulation with Eliquis] SOCIAL HISTORY: [Patient smokes five cigarettes daily. Patient denies drug use. Patient denies alcohol use. Patient lives with his ex-, Nichole Sheffield] SURGICAL HISTORY: [CABG, bilateral thigh lipoma excision] Review of Systems General: No Fever, No Chills, No Night Sweats, No Fatigue, No Malaise, No Appetite, No Other HEENT: No Head Aches, No Visual Changes, No Eye Pain, No Ear Pain, No Dysphasia, No Sinus Congestion, No Post Nasal Drip, No Sore Throat, No Other Pulmonary: No Dyspnea, No Cough, No Pleuritic Chest Pain, No Other Cardiovascular: No: Chest Pain, Palpitations, Orthopnea, Paroxysmal Noc. Dyspnea, Edema, Lt Headedness, Other Gastrointestinal: Abdominal Pain; No: Nausea, Vomiting, Diarrhea, Constipation, Melena, Hematochezia, Other Genitourinary: No Dysuria, No Frequency, No Incontinence, No Hematuria, No Retention, No Other Musculoskeletal: No: other, neck pain, shoulder pain, arm pain, back pain, hand pain, leg pain, foot pain Skin: No Urticaria, No Rash, No Other Neurological: No: Weakness, Numbness, Incoordination, Change in speech, Confusion, Seizures, Other Allergies: Coded Allergies: No Known Drug Allergies (Unverified Allergy, Unknown, 10/20/17) Scheduled Apixaban (Eliquis), 5 MG PO BID, (Reported) Atorvastatin Calcium (Atorvastatin Calcium), 20 MG PO HS, (Reported) Exam Vital Signs Vital Signs Date Time Temp Pulse Resp B/P (MAP) Pulse Ox O2 Delivery O2 Flow Rate FiO2 01/13/25 14:54 98.1 60 18 142/62 98 Room Air* 0 21 General Appearance: Alert, Oriented X3, Cooperative, mild distress HEENT: Atraumatic, EOMI Respiratory: Clear to auscultation, Normal air movement, NL respiratory effort Cardiovascular: Regular rate, Regular rhythm, Normal S1, Normal S2 Abdominal: Normal bowel sounds, Soft, No tenderness Extremities: No edema Skin: No significant lesion Neuro: Normal gait, Normal speech, Strength at 5/5 X4 ext, Sensation intact Psych/Mental Status: Mental status NL, Mood NL, Thoughts/Content NL Additional PE Genitourinary: Positive presence of Swanson catheter Assessment/Plan ASSESSMENT: [ Right pyelonephritis, POA Right mild hydronephrosis, POA Right ureterolithiasis, POA, [address] scan Atrial fibrillation] PLAN: [ Admit patient to medical floor as inpatient status. Place patient on telemetry monitoring. Strain all urine Flomax 0.4 mg by mouth wound daily. Ketorolac 10 mg by mouth twice daily Empiric antibiotic therapy with Rocephin Consider resuming home medications once they has been reconciled. At time of admission home medications not been reconciled. For now: Eliquis 5 mg by mouth twice daily Metoprolol 12.5 mg by mouth once daily. GI prophylaxis, famotidine DVT prophylaxis, DOAC as stated above ADVANCED CARE PLANNING 1. Which of the following were discussed? Hospice Care - Yes Therapeutic options - yes Advance Directives - Yes - patient states he does not have any advance directives in place at this time, however his ex-, Nichole can make decisions for him if he becomes unable. Other discussions - patient wishes to remain a full code at this time 2. Discussed with who? Patient 3. Voluntary nature of this service was explained to the patient? Yes 4. Amount of time spent - ___16 minutes____ 5. Reviewed by Physician? (if this service was performed by NPP) Yes ATTESTATION BY PHYSICIAN I have seen and examined the patient. I reviewed the documentation, medical decision making, and treatment plan as noted by the mid-level provider above. I agree with the findings and plan of care. This document was generated in part using voice recognition software, occasional wrong word or sound alike substitutions may have occurred due to the inherent limitations of voice recognition software. Read the chart carefully and recognize using context, where the substitutions have occurred. Although every effort was made to edit the content, aeroplane pilot and typing errors may occur ] YANI JOYNER [facility] Jan 13, 2025 18:55
[2025-01-13] MEDS: 0.9%NACL 1000ML 1,000 ML IV ONE (19:03)
--- NOTE | 2025-01-13 20:21 | NUR ---
PT PRESENTS TO ER ABD PAIN RAD TO R LOWER BACK COMPLAINT URINARY FREQUENCY AND POSSIBLE URINARY RETENTION . BLADDER SCAN BY MYSELF AND DR COOK INCONCLUSIVE 16 F FCPACED RESULTING IN 30 CC OUTPUT OF CLEAR M[place] COLORED URINE. PT ALSO HAS PREVIOUS BILAT THIGH SURGICAL DRAINS RIGHT THIGH CONTINUED CLEAR DRAINAGE 3 WKS POST DRAIN REMOVAL
--- NOTE | 2025-01-13 20:21 | NUR ---
PT PRESENTS TO ER WITHOUT HOME MEDS
--- NOTE | 2025-01-13 23:15 | NUR ---
TRANSERED CARE TO [facility] AT THIS TIME
--- NOTE | 2025-01-13 23:30 | NUR ---
Keisha JOYNER ASSEMBLER CHASSIS AT PT BEDSIDE AT THIS TIME
--- NOTE | 2025-01-14 00:24 | NUR ---
PT WAS PLACED ON HOSPITAL BED
--- NOTE | 2025-01-14 01:10 | NUR ---
RECEIVED REPORT FROM CARLOS KEE
--- NOTE | 2025-01-14 03:10 | NUR ---
DRESSING TO UPPER R THIGH SATURATED WITH CLEAR DRAINAGE FROM WOUND, DRESSING CHANGED UTILIZING STERILE 4X4 GAUZE
[2025-01-14 07:24] LABS: IMMATURE GRANULOCYTE ABSOLUTE 0.03 K/uL (0-1); NUCLEATED RED BLOOD CELLS 0.0 % (0.0-0.19); PLATELET COUNT (AUTO) 228 K/uL (130-400); RED BLOOD CELL COUNT(AUTO) 3.87 MIL/uL (4.50-6.20); RED CELL DISTRIBUTION WIDTH 14.6 % (11.0-15.5); WHITE BLOOD COUNT (AUTO) 7.8 K/uL (4.8-10.8)
[2025-01-14 07:35] LABS: CREATININE 1.1 mg/dL (0.5-1.3); GLOMERULAR FILTR. RATE CALC 70.0 mL/min (>90); GLUCOSE,RANDOM 126.0 mg/dL (70-105); PHOSPHORUS 3.7 mg/dL (2.5-4.9); SODIUM SERUM 135.0 mmol/L (136-145); UREA NITROGEN, BLOOD 22.0 mg/dL (7-18)
[2025-01-14] MEDS: FAMOTIDINE 20MG TAB PO SCH (08:04)
--- NOTE | 2025-01-14 08:04 | NUR ---
NOTIFIED ERIKA FROM PHARMACY WE ARE OUT OF TORADOL PO, STATES WILL HAVE IT RESTOCKED SHORTLY
--- NOTE | 2025-01-14 08:56 | NUR ---
CHANGED DRESSING TO RT LOWER THIGH, SOAKED WITH SEROUS FLUID, PER JORDAN RN DRESSING WAS CHANGED SEVERAL TIMES AT NIGHT, PT STATES HAS BEEN DRAINING SINCE HE HAD A LIPOMA REMOVED BY A SURGEON.
[2025-01-14] MEDS ORDERED: ENOXAPARIN SODIUM 40 MG/0.4 ML SYRINGE SQ SCH (09:00)
[2025-01-14] MEDS ORDERED: RIVAROXABAN 20 MG TABLET PO SCH (09:00)
--- NOTE | 2025-01-14 11:08 | NUR ---
DCP: HOME Pt currently lives with mc Sheffield [phone]. Pt does not report insecurities with food, snf, and/or utilities. Pt does not have DME, home health, or provider services. Pt is able to complete ADLs independently. PCP is Dr. Freeman Herrera and uses [facility] for any RX needs. At MD pt will want to go home and family can assist with transportation. Addendum: 01/14/25 at 1110 by WESLEY RUBIO SS Amended: Links added.
--- NOTE | 2025-01-14 11:43 | NUR ---
CALLED TO GIVE REPORT, PER FABIO, NURSE IS WITH A PT AND WILL CALL BACK TO EXT [phone]
[2025-01-14 12:45] VITALS: BP 145/70; PULSE 75; RESP 19; TEMP 97.9
--- NOTE | 2025-01-14 12:45 | NUR ---
RECEIVED PATIENT FROM ER PATIENT TRANSFERRED TO BED AND ORIENTATED TO ROOM. BED WAS SET TO LOWEST POSITION AND VITALS WERE CHECKED. BEDSIDE TABLE WAS MOVED NEXT TO PATIENT. ANSWERED ANY QUESTIONS AND CONCERNS PATIENT HAD. CALL LIGHT WITHIN REACH.
[2025-01-14 15:44] VITALS: BP 129/51; PULSE 62; RESP 17; TEMP 98.1
--- NOTE | 2025-01-14 19:00 | NUR ---
NURSING NOTE DRESSING TO RIGHT GROIN WAS CHANGED. CLEANSED WITH NS, THEN GAUZE AND TAPE WAS APPLIED. PATIENT TOLERATED WELL, ANSWERED ANY QUESTIONS AND CONCERNS PATIENT HAD.
[2025-01-14 20:00] VITALS: BP 139/67; PULSE 75; RESP 20; TEMP 98.7; O2SAT 98
--- NOTE | 2025-01-14 22:51 | PN ---
[facility] PROGRESS NOTE Date of Service: Jan 14, 2025 Time of Service: 1300 SUBJECTIVE: 01/14/25: The patient was evaluated multiple times today and has remained hemodynamically stable. His flank pain had improved in the morning but recurred briefly in the evening as a short episode of dull, achy discomfort that resolved spontaneously. He has chronic bilateral lower extremity lymphedema, with the left leg appearing thickened, black-tar in color, and associated with numbness. He also reports a nonhealing wound on the right thigh from a lipoma excision performed on November 25. Laboratory studies show WBC 8.0, hemoglobin 13.4, lactic acid 1.2, and negative procalcitonin. CT abdomen reveals perinephric fat stranding, a 2 mm distal ureteral stone, and mild hydronephrosis. We will continue IV Rocephin and consult both wound care and general surgery for further evaluation and management of the right thigh wound. REVIEW OF SYSTEMS CONSTITUTIONAL: Denies fevers, chills, or night sweats. No unintentional weight loss reported. CARDIOVASCULAR: Denies any exertional angina, dyspnea on exertion, orthopnea, paroxysmal nocturnal dyspnea, palpitations, life-threatening arrhythmias, claudication. PULMONARY: Denies any shortness of breath, cough, phlegm/sputum, hemoptysis, pleuritic chest pain. SLEEP: Denies morning headaches, daytime somnolence or napping. Denies difficulty falling asleep, staying asleep, waking from sleep. Denies knowledge of snoring. GASTROINTESTINAL: Complaints of achy abdominal pain over right abdominal/flank region, Denies any type of dysphagia to either liquids or solids. Denies nausea, vomiting, pyrosis, early satiety, diarrhea, constipation, or changes in stool consistency or caliber. Denies coffee-ground emesis, hematemesis, hematochezia, or melanotic stools. GENITOURINARY: Denies frequency, urgency, nocturia, hematuria or incontinence (Storage/Irritative symptoms.) Low urinary stream, straining to void, urinary intermittency or hesitancy, splitting of the voiding stream, terminal dribbling. PSYCHIATRIC: Denies any suicidal or homicidal ideation. Denies hallucinations. PHYSICAL EXAM GENERAL APPEARANCE: The patient is awake, alert, and oriented, in no acute cardiopulmonary distress. HEENT: Face is symmetric. Pupils are equal and reactive. Extraocular movements are intact. CHEST: Normal chest expansion. No Telemetry. LUNGS: Absence of any rales, rhonchi or any wheezing. CARDIOVASCULAR: Regular. S1 and S2 normal. No appreciable rubs, murmurs or gallops. ABDOMEN: Soft, nontender, and nondistended. There is no rebound, voluntary guarding, or rigidity. : Deferred. No Swanson. SKIN: Chronic lymphedema of bilateral lower extremities noted. The left leg sh ows thickened skin with black tar-like discoloration and a dry, indurated appearance; patient reports numbness in the area. Right thigh has a nonhealing post-surgical wound present with drainage Vital Signs (last 8hr) Date Time Temp Pulse Resp B/P (MAP) Pulse Ox O2 Delivery O2 Flow Rate FiO2 01/14/25 20:00 98.8 75 20 139/67 98 Room Air 01/14/25 15:44 98.1 62 17 129/51 97 Room Air LABS: Laboratory: Test 01/14/25 13:30 01/14/25 07:12 01/13/25 14:47 Range/Units Lactic Acid Level 1.2 0.8-2.5 mmol/L Procalcitonin < 0.05 L 0.05-0.5 ng/mL White Blood Count 7.8 4.8-10.8 K/uL Red Blood Count 3.87 L 4.50-6.20 MIL/uL Hemoglobin 12.9 L 14.0-18.0 g/dL Hematocrit 39.8 L 42-54 % Mean Corpuscular Volume 102.8 H 79-99 fL Mean Corpuscular Hemoglobin 33.3 H 27.0-33.0 pg Mean Corpuscular Hemoglobin Concent 32.4 32.0-36.0 g/dL Red Cell Distribution Width 14.6 11.0-15.5 % Platelet Count 228 130-400 K/uL Mean Platelet Volume 9.5 7.5-10.5 fL Immature Granulocyte % (Auto) 0.4 0-1 % Neutrophils (%) (Auto) 70.1 40.0-77.0 % Lymphocytes (%) (Auto) 20.5 L 21.0-51.0 % Monocytes (%) (Auto) 7.4 3.0-13.0 % Eosinophils (%) (Auto) 1.5 0.0-8.0 % Basophils (%) (Auto) 0.1 0.0-5.0 % Neutrophils # (Auto) 5.5 1.8-7.7 K/uL Lymphocytes # (Auto) 1.6 1.0-4.8 K/uL Monocytes # (Auto) 0.6 0.1-1.0 K/uL Eosinophils # (Auto) 0.12 0.00-0.70 K/uL Basophils # (Auto) 0.01 0.00-0.20 K/uL Absolute Immature Granulocyte (auto 0.03 0-1 K/uL Nucleated Red Blood Cells 0.0 0.0-0.19 % Sodium Level 135 L 136-145 mmol/L Potassium Level 4.2 3.5-5.1 mmol/L Chloride Level 103 101-111 mmol/L Carbon Dioxide Level 28 21-32 mmol/L Blood Urea Nitrogen 22 H 7-18 mg/dL Creatinine 1.1 0.5-1.3 mg/dL Glomerular Filtration Rate Calc 70 >90 mL/min Random Glucose 126 H 70-105 mg/dL Total Calcium 9.1 8.5-10.1 mg/dL Phosphorus Level 3.7 2.5-4.9 mg/dL Magnesium Level 1.90 1.80-2.40 mg/dL Urine Color YELLOW YELLOW Urine Appearance HAZY CLEAR Urine pH 5.5 5.0-8.0 Urine Specific [place] 1.032 H 1.001-1.031 Urine Protein 100 H NEGATIVE mg/dL Urine Glucose (UA) NEGATIVE NEGATIVE mg/dL Urine Ketones 5 H NEGATIVE mg/dL Urine Occult Blood LARGE H NEGATIVE Urine Nitrate NEGATIVE NEGATIVE Urine Bilirubin MODERATE H NEGATIVE mg/dL Urine Urobilinogen 1.0 0.2-1.0 mg/dL Urine Leukocyte Esterase NEGATIVE NEGATIVE Vitor/uL Urine RBC 26-50 H 0-1 /HPF Urine WBC 0-1 0-1 /HPF Urine Squamous Epithelial Cells Rare 0-2 /HPF Urine Amorphous Crystals (Auto) Few H None Seen /LPF Urine Bacteria Moderate H None Seen /HPF Current Medications Medications (Trade) Dose Ordered Sig/Gianni Route PRN Reason Start Time Stop Time Status Last Admin Dose Admin Acetaminophen (TYLenol 325MG TAB) 650 mg Q6H PRN PO TEMPERATURE GREATER THAN 101.5 01/13/25 20:00 02/12/25 19:59 Apixaban (EliquIS) 5 mg BID PO 01/14/25 09:00 02/13/25 08:59 01/14/25 20:59 5 MG Ceftriaxone Sodium (ROCEphine 1G INJ) 1 gm Q24H IVPB 01/13/25 20:00 01/23/25 19:59 01/14/25 20:59 1 GM Enoxaparin Sodium (Lovenox) 40 mg DAILY SQ 01/14/25 09:00 01/13/25 19:55 DC Famotidine (Pepcid 20mg Tab) 20 mg DAILY PO 01/14/25 09:00 02/13/25 08:59 01/14/25 08:04 20 MG Hydralazine HCl (APRESOLine 20MG INJ) 10 mg Q6H PRN IV For:SBP above 160;DBP above 90 01/13/25 20:00 02/12/25 19:59 Ketorolac Tromethamine (ketOROlac troMETHamine) 10 mg BID PO 01/13/25 21:00 01/18/25 20:59 01/14/25 20:59 10 MG Metoprolol Tartrate (loprESSOR) 12.5 mg BID PO 01/13/25 21:00 02/12/25 20:59 01/14/25 20:59 12.5 MG Morphine Sulfate (morPHINE 2MG SYG) 2 mg Q4H PRN IVP SEVERE PAIN (7-10) 01/13/25 20:00 01/20/25 19:59 Ondansetron HCl (zoFRAN 4MG INJ) 4 mg Q6H PRN IV NAUSEA/VOMITING 01/13/25 20:00 02/12/25 19:59 Rivaroxaban (Xarelto) 20 mg DAILY PO 01/14/25 09:00 01/14/25 01:43 DC Tamsulosin HCl (FloMAX) 0.4 mg DAILY PO 01/14/25 09:00 02/13/25 08:59 01/14/25 08:04 0.4 MG DIAGNOSTICS / RADIOLOGY: [address] [address] IMAGING REPORT Signed PATIENT: KARENA PETTY MR#: [id number] : 1950 SEX: M AGE: 74 LOCATION: [facility] ORDER 14 STATUS: REG REPORT#: [id number] SERVICE 13 REASON: lower abd pain ORDERING PHYSICIAN: CARLOS COOK MD PROCEDURE: ABD PEL WO - CT ABDOMEN/PELVIS W/O CONTRAST EXAM: CT abdomen and pelvis without contrast HISTORY: Lower abdominal pain TECHNIQUE: Multiple axial CT slices through the abdomen and pelvis without contrast. Coronal and sagittal reconstructions were performed. CT scans are performed using one of these three dose reduction techniques: automated exposure control, adjustment of the mA and/or kV according to patient size, or use of iterative reconstruction techniques. COMPARISON: 12/06/2024 FINDINGS: Lung bases are clear. Small hiatal hernia. No hepatic lesion. Multiple gallstones noted. Spleen is normal. Fatty infiltration of the pancreas. Adrenal glands are normal. Right perinephric stranding. Mild right-sided hydronephrosis. 2 mm stone seen in the distal right ureter causing mild hydronephrosis. Bladder is decompressed by Swanson. No free fluid. No pneumoperitoneum. No bowel dilatation. Appendix is normal. No abdominal/pelvic lymphadenopathy. Vascular calcifications. Degenerative changes. IMPRESSION: Tiny stone seen in the distal right ureter causing mild hydronephrosis. /[place] DICTATED BY: KEVIN ROLAND MD DATE: 01/13/251827 ELECTRONICALLY SIGNED BY: KEVIN ROLAND MD DATE: 01/13/251827 ASSESSMENT: Right pyelonephritis, POA Right mild hydronephrosis, POA Right ureterolithiasis, POA, [address] scan POA Nonhealing right thigh wound (post-lipoma excision 11/25) POA Chronic bilateral lower extremity lymphedema POA Atrial fibrillation on Eliquis, POA Morbid obesity (BMI 56.5) POA PLAN: The patient remains admitted on the medical surgical floor. Right pyelonephritis, POA * CT shows perinephric fat stranding with associated mild hydronephrosis; likely infectious component. Continue IV Rocephin 1 g every 24 hours. * Continue pain control with Ketorolac 10 mg PO BID and morphine2 g q.4 as needed for pain. * Follow up with the urine culture results when available. Right ureterolithiasis, POA, [address] scan POA * Drink plenty of fluids. * Continue Tamsulosin (Flomax) 0.4 mg daily to facilitate stone passage. Nonhealing right thigh wound (post-lipoma excision 11/25) POA * Wound care consulted. Dr. Desai, who performed the right thigh lipoma excision, has been consulted for further evaluation. * Follow up with the recommendations when available. Home medications have not been reconciled. The nurse was asked to enter the home medications. We will reconcile when it is available. DVT prophylaxis: Continue with Eliquis 5 mg p.o. b.i.d.. GI prophylaxis: Famotidine 20 mg p.o. b.i.d.. The patient was informed in detail about his current condition, including pyelonephritis, ureteral stone, and the nonhealing surgical wound. He was initially hesitant to stay longer for Wound Care consult but agreed after discussion. All questions were addressed, and he consented to continue treatment and proceed with Wound Care and General Surgery evaluations. AM Labs: CBC, BMP ATTESTATION BY PHYSICIAN I have seen and examined the patient. I reviewed the documentation, medical decision making, and treatment plan as noted by the resident provider above. I agree with the findings and plan of care. Esequiel Herrmann MD, MANALI MD Jan 14, 2025 22:51
[2025-01-15] VITALS: BP 113/53; PULSE 70; RESP 18; TEMP 98.7
[2025-01-15 04:00] VITALS: BP 121/52; PULSE 68; RESP 20; TEMP 98.3
[2025-01-15 05:01] LABS: NUCLEATED RED BLOOD CELLS 0.0 % (0.0-0.19); PLATELET COUNT (AUTO) 220.0 K/uL (130-400); RED BLOOD CELL COUNT(AUTO) 3.71 MIL/uL (4.50-6.20); RED CELL DISTRIBUTION WIDTH 14.6 % (11.0-15.5); WHITE BLOOD COUNT (AUTO) 8.5 K/uL (4.8-10.8)
[2025-01-15 05:19] LABS: CREATININE 1.3 mg/dL (0.5-1.3); GLOMERULAR FILTR. RATE CALC 57.0 mL/min (>90); GLUCOSE,RANDOM 123.0 mg/dL (70-105); SODIUM SERUM 140.0 mmol/L (136-145); UREA NITROGEN, BLOOD 26.0 mg/dL (7-18)
[2025-01-15 07:59] VITALS: BP 136/67; PULSE 70; RESP 18; TEMP 97.8
[2025-01-15 09:15] VITALS: O2SAT 97
[2025-01-15 11:17] VITALS: BP 120/56; PULSE 70; RESP 18; TEMP 97.7
--- NOTE | 2025-01-15 14:10 | NUR ---
[facility] Consult: Patient assessed by wound healing team. See wound assessment. Assessment and recommendations provided to primary nurse. Education provided. Wound care done. Addendum: 01/16/25 at 1046 by ZOEY MCCULLOUGH RN RN/ Amended: Links added.
--- NOTE | 2025-01-15 15:19 | CONS ---
CONSULT NOTE: Consulting physician: Dr. Cochran Consulting service: General surgery Reason for consultation: Evaluation of surgical site from excision of lipoma to right lower extremity History of present illness: This is a 74-year-old male consulted to surgery after presenting to the hospital with concerns of abdominal pain that began two days prior and suprapubic discomfort. Patient with perinephric stranding with a 2 mm stone in the right ureter and mild right hydronephrosis. While workup patient reported that EAMON drain has been removed by Dr. Desai is office and that EAMON entrance site had continue to drain serosanguineous fluid. Incisions from lipoma excision unremarkable. No infection noted. WBCs and vitals stable Medical history: ADDITIONAL PAST MEDICAL HISTORY: AFib on chronic anticoagulation with Eliquis SOCIAL HISTORY: Patient smokes five cigarettes daily. Patient denies drug use. Patient denies alcohol use. Patient lives with his ex-, Nichole Sheffield SURGICAL HISTORY: CABG, bilateral thigh lipoma excision Surgical history: Recent excision of bilateral lower extremity lipomas Review of systems: General: No Fever, No Chills, No Night Sweats, No Fatigue, No Malaise, No Appetite, No Other HEENT: No Head Aches, No Visual Changes, No Eye Pain, No Ear Pain, No Dysphasia, No Sinus Congestion, No Post Nasal Drip, No Sore Throat, No Other Pulmonary: No Dyspnea, No Cough, No Pleuritic Chest Pain, No Other Cardiovascular: No: Chest Pain, Palpitations, Orthopnea, Paroxysmal No Dyspnea, Edema, Lt Headedness, Other Gastrointestinal: No: Nausea, Vomiting, Diarrhea, Constipation, Melena, Gary tochezia, Other Genitourinary: No Dysuria, No Frequency, No Incontinence, No Hematuria, No Retention, No Other Musculoskeletal: No: other, neck pain, shoulder pain, arm pain, back pain, hand pain, leg pain, foot pain Skin: No Urticaria, No Rash, No Other Neurological: No: Weakness, Numbness, Incoordination, Change in speech, Confusion, Seizures, Other Physical exam: General: Awake alert and oriented Heart: Regular rate and rhythm} Lungs: Clear to auscultation no distress Abdomen: [Soft, nontender, nondistended Lower extremities unremarkable no signs of infection Assessment: This is a 74-year-old male status post lipoma excision bilateral lower extremities Plan: From surgical standpoint no intervention to be scheduled Patient is cleared for clearance once cleared by primary team Patient to follow up with Dr. Desai is office Surgical team to sign off at this time. Thank you HIEU PURI Jr. Jan 15, 2025 15:19
[2025-01-15] MEDS ORDERED: LEVO-70 PO (15:22)
[2025-01-15 16:00] VITALS: BP 124/43; PULSE 74; RESP 19; TEMP 97.8
--- NOTE | 2025-01-15 16:08 | CONS ---
CONSULTATION NOTE Date of Service: Jan 15, 2025 Reason for Consultation: [ Open wound to right thigh ] Requesting Physician: [ ] HISTORY OF PRESENT ILLNESS: [ ] REVIEW OF SYSTEMS CONSTITUTIONAL: Denies fever, chills, or fatigue. HEAD/FACE: No signs of trauma. EENT: Denies eye pain, blurred vision, double vision, or light sensitivity. RESPIRATORY: Denies shortness of breath, cough, wheezing CARDIOVASCULAR: Denies chest pain, palpitation, syncope GASTROINTESTINAL/ABDOMINAL: Denies abdominal pain, constipation, diarrhea, nausea or vomiting GENITOURINARY: Denies dysuria or hematuria. MUSCULOSKELETAL: Denies joint pain, tenderness, or trauma. INTEGUMENTARY: Denies rash or itchiness NEUROLOGICAL/PSYCH: Denies anxiety, depression, heat or cold intolerance. PAST MEDICAL HISTORY: [ ] PAST SURGICAL HISTORY: [ ] PAST SOCIAL HISTORY: [ ] FAMILY HISTORY: [ ] Coded Allergies: No Known Drug Allergies (Unverified Allergy, Unknown, 10/20/17) PHYSICAL EXAM EYES: Anicteric. Pupils equal and reactive. HENT: No oral thrush seen, moist Oral mucosa NECK: Supple, no JVD or thyromegaly. LUNGS: Good air entry. No rales, no rhonchi. CARDIOVASCULAR: S1, S2 regular. No murmur heard. ABDOMEN: Soft, non tender, bowel sounds present, no organomegaly CENTRAL NERVOUS SYSTEM: Awake, alert, oriented x 3. No focal deficits. SKIN: No rashes, no swelling. LYMPHATICS: No peripheral lymphadenopathy MUSCULOSKELETAL: No joint swelling, erythema or tenderness. EXTREMITIES: No cyanosis or clubbing BACK: No deformity, no pressure ulcer. GENITOURINARY: No dysuria or hematuria Vital Sign (Last 24 Hours) 01/15/25 01/15/25 09:15 11:17 Temp 97.7 Pulse 70 Resp 18 B/P (MAP) 120/56 Pulse Ox 97 O2 Delivery Room Air O2 Flow Rate 0 FiO2 21 Intake & Output (last 24hrs) 01/14/25 01/14/25 01/15/25 15:00 23:00 07:00 Intake Total 120 ml Output Total 250 ml 300 ml Balance -250 ml -180 ml LABS: Laboratory: Test 01/15/25 04:30 01/14/25 13:30 01/14/25 07:12 Range/Units White Blood Count 8.5 4.8-10.8 K/uL Red Blood Count 3.71 L 4.50-6.20 MIL/uL Hemoglobin 12.4 L 14.0-18.0 g/dL Hematocrit 38.2 L 42-54 % Mean Corpuscular Volume 103.0 H 79-99 fL Mean Corpuscular Hemoglobin 33.4 H 27.0-33.0 pg Mean Corpuscular Hemoglobin Concent 32.5 32.0-36.0 g/dL Red Cell Distribution Width 14.6 11.0-15.5 % Platelet Count 220 130-400 K/uL Mean Platelet Volume 10.0 7.5-10.5 fL Nucleated Red Blood Cells 0.0 0.0-0.19 % Sodium Level 140 136-145 mmol/L Potassium Level 5.1 3.5-5.1 mmol/L Chloride Level 104 101-111 mmol/L Carbon Dioxide Level 30 21-32 mmol/L Blood Urea Nitrogen 26 H 7-18 mg/dL Creatinine 1.3 0.5-1.3 mg/dL Glomerular Filtration Rate Calc 57 >90 mL/min Random Glucose 123 H 70-105 mg/dL Total Calcium 8.8 8.5-10.1 mg/dL Lactic Acid Level 1.2 0.8-2.5 mmol/L Procalcitonin < 0.05 L 0.05-0.5 ng/mL Immature Granulocyte % (Auto) 0.4 0-1 % Neutrophils (%) (Auto) 70.1 40.0-77.0 % Lymphocytes (%) (Auto) 20.5 L 21.0-51.0 % Monocytes (%) (Auto) 7.4 3.0-13.0 % Eosinophils (%) (Auto) 1.5 0.0-8.0 % Basophils (%) (Auto) 0.1 0.0-5.0 % Neutrophils # (Auto) 5.5 1.8-7.7 K/uL Lymphocytes # (Auto) 1.6 1.0-4.8 K/uL Monocytes # (Auto) 0.6 0.1-1.0 K/uL Eosinophils # (Auto) 0.12 0.00-0.70 K/uL Basophils # (Auto) 0.01 0.00-0.20 K/uL Absolute Immature Granulocyte (auto 0.03 0-1 K/uL Phosphorus Level 3.7 2.5-4.9 mg/dL Magnesium Level 1.90 1.80-2.40 mg/dL DIAGNOSTICS / RADIOLOGY: [ ] PROBLEM LIST : Medical Problems: Unspecified open wound to right thigh PLAN: Wound care to open wound to right thigh-Cleanse with normal saline, pat dry, apply medihoney with mupirocin, cover with gauze, secure with tape change daily and prn FRANCOISE IBRAHIM CURBING STONECUTTER Jan 15, 2025 16:08
[2025-01-15] MEDS: MUPIROCIN OINTMENT 22 GM TUBE TP SCH (17:03)
[2025-01-15] MEDS: HONEY 1 APPL/ML TUBE TP SCH (17:03)
--- NOTE | 2025-01-15 17:51 | NUR ---
DISCHARGE Patient provided with discharge instructions. Patient provided with Medihoney and muprocen ointment and gauze, tape, and wound care supplies. All questions answered, patient verbalized understanding. IV removed. Patient to discharge home pending family to picker tender.
--- NOTE | 2025-01-15 22:51 | DS ---
Discharge Summary Hospital Course Summary: The patient is a 74-year-old male with a past medical history of atrial fibrillation on chronic anticoagulation with Eliquis, coronary artery bypass grafting (CABG), bilateral chronic lower extremity lymphedema, and prior bilateral lipoma excision who presented to the emergency department at [facility] on 01/13/2025 with complaints of suprapubic, cramping abdominal pain ongoing for two days. He denied any associated nausea, vomiting, or diarrhea. Initial evaluation revealed an unremarkable complete blood count. Urinalysis was notable for 2650 red blood cells per high-powered field. CT abdomen and pelvis showed cholelithiasis without cholecystitis, perinephric fat stranding, and a 2 mm right ureteral stone associated with mild right-sided hydronephrosis. The patient was admitted with a diagnosis of right-sided pyelonephritis. Empiric treatment with intravenous fluids and ceftriaxone (Rocephin) was initiated, with rapid clinical improvement and near-complete resolution of flank pain. The patient was also started on tamsulosin 0.4 mg orally daily to aid in stone passage. The patient developed acute kidney injury during hospitalization, with serum creatinine rising from 0.9 mg/dL on admission to a peak of 1.3 mg/dL within 48 hours, likely related to ketorolac (Toradol) administration. During hospitalization, chronic bilateral lower extremity lymphedema was noted, with 3+ edema and serosanguineous drainage from prior bilateral lipoma excision site in the right thigh. Wound management and general surgery were consulted. Wound care recommended daily dressing with Medihoney and mupirocin ointment, covered with gauze and secured with tape. General surgery signed off with plans for outpatient follow-up. By 01/15/2025, the patient remained afebrile, symptom-free, and clinically stable. Urine cultures remained negative, and his abdominal pain had completely resolved. He was deemed medically appropriate for discharge with a prescription for oral levofloxacin and instructions for outpatient follow-up. Activities Director Scouting(s): Dr. Julissa Desai, General Surgeon Dr. Capo Lincoln, Wound management Procedure(s): [place] [id number] [place] [id number] IMAGING REPORT Signed PATIENT: KARENA PETTY MR#: [id number] : 1950 SEX: M AGE: 74 LOCATION: [facility] ORDER 14 STATUS: REG ER REPORT#: [id number] SERVICE 1514 REASON: lower abd pain ORDERING PHYSICIAN: CARLOS COOK MD PROCEDURE: ABD PEL WO - CT ABDOMEN/PELVIS W/O CONTRAST EXAM: CT abdomen and pelvis without contrast HISTORY: Lower abdominal pain TECHNIQUE: Multiple axial CT slices through the abdomen and pelvis without contrast. Coronal and sagittal reconstructions were performed. CT scans are performed using one of these three dose reduction techniques: automated exposure control, adjustment of the mA and/or kV according to patient size, or use of iterative reconstruction techniques. COMPARISON: 12/06/2024 FINDINGS: Lung bases are clear. Small hiatal hernia. No hepatic lesion. Multiple gallstones noted. Spleen is normal. Fatty infiltration of the pancreas. Adrenal glands are normal. Right perinephric stranding. Mild right-sided hydronephrosis. 2 mm stone seen in the distal right ureter causing mild hydronephrosis. Bladder is decompressed by Swanson. No free fluid. No pneumoperitoneum. No bowel dilatation. Appendix is normal. No abdominal/pelvic lymphadenopathy. Vascular calcifications. Degenerative changes. IMPRESSION: Tiny stone seen in the distal right ureter causing mild hydronephrosis. /[place] DICTATED BY: KEVIN ROLAND MD DATE: 01/13/251827 ELECTRONICALLY SIGNED BY: KEVIN ROLAND MD DATE: 01/13/251827 Assessment/Plan: ASSESSMENT: Right pyelonephritis, POA Right mild hydronephrosis, POA Right ureterolithiasis, POA, [address] scan POA Nonhealing right thigh wound (post-lipoma excision 11/25) POA Acute kidney injury, NPOA Chronic bilateral lower extremity lymphedema POA Atrial fibrillation on Eliquis, POA Morbid obesity (BMI 56.5) POA Admission Date: 01/13/2025 Discharge Date: 01/15/2025 Disposition: Home Condition at Discharge: Stable Activity: As tolerated Home Medications: Continued Discharge Medications: Levofloxacin 500 mg orally once daily for 5 days (insert correct dose) Follow-Up Appointments: Primary Care Provider: within 2 weeks of discharge Discharge Instructions: Medications: Take levofloxacin 500 mg orally once daily for 5 days as prescribed. Resume all home medications. Avoid NSAIDs (e.g., ibuprofen, naproxen, ketorolac) unless specifically approved by your healthcare provider, due to recent kidney injury. Wound Care (Lipoma Excision Site): Clean the wound gently and apply Medihoney and mupirocin ointment, cover with gauze, and secure with tape once daily. Monitor for signs of infection (increased redness, swelling, drainage, foul odor, or worsening pain). If dressing becomes saturated, change it sooner. Activity: Resume activity as tolerated. Elevate legs when resting to reduce swelling from chronic lymphedema. When to Seek Medical Attention: Fever >100.4F Worsening abdominal, flank, or wound pain Decreased urine output or dark urine Swelling or drainage at surgical site Lightheadedness, chest pain, or shortness of breath Home Medications: Active Scripts Levofloxacin (Levofloxacin) 500 Mg Tablet, 1 TAB PO DAILY for 5 Days, #5 TAB 0 Refills Prov:MANDI LOYA MD 01/15/25 Reported Medications Atorvastatin Calcium (Atorvastatin Calcium) 20 Mg Tablet, 20 MG PO HS, TAB 12/20/24 Apixaban (Eliquis) 5 Mg Tablet, 5 MG PO BID, TAB 12/20/24 New Medications: Levofloxacin (Levofloxacin) 500 Mg Tablet 1 TAB PO DAILY for 5 Days, #5 TAB 0 Refills Continued Medications: Apixaban (Eliquis) 5 Mg Tablet 5 MG PO BID, TAB Atorvastatin Calcium (Atorvastatin Calcium) 20 Mg Tablet 20 MG PO HS, TAB Time spent arranging discharge: 31-60 minutes ATTESTATION BY PHYSICIAN I have seen and examined the patient. I reviewed the documentation, medical decision making, and treatment plan as noted by the resident provider above. I agree with the findings and plan of care. Esequiel Herrmann MD, MANALI MD Jan 15, 2025 22:51
== END 2025-01-15 18:20 | disposition home or self-care (01) | DRG 690 ==
LOC: EDH 13:44 → EDHIP 18:52 → 3BH 01-14 12:45
PROVIDERS: ADMIT Internal Medicine; ATTEND Internal Medicine
DX: N13.6 Pyonephrosis (principal); N20.1 Calculus of ureter; Z68.43 Body mass index [BMI] 50.0-59.9, adult; E66.01 Morbid (severe) obesity due to excess calories; I48.91 Unspecified atrial fibrillation; F17.210 Nicotine dependence, cigarettes, uncomplicated; I89.0 Lymphedema, not elsewhere classified; N17.9 Acute kidney failure, unspecified; Z79.01 Long term (current) use of anticoagulants; Z95.1 Presence of aortocoronary bypass graft
CPT/HCPCS: 36415; 74176; 80048; 81001; 83605; 83735; 84100; 84145; 85025; 85027; 87070; 87076; 87086; 96374; 99285; G0378; J0696; J1885; J2270; J7030

== ENCOUNTER → 2025-05-08 | Outpatient (CLI) | payer OTHER ==
[~2025-05-08] MED LIST changes: +LEVO-70 PO
--- NOTE | 2025-05-08 14:56 | HMCIMG ---
Musculoskeletal ultrasound (left upper thigh). CLINICAL INDICATION: Status post lipoma removal FINDINGS: Ultrasound of the left thigh at the site of lipoma removal demonstrate an inflammatory process suggesting a phlegmon with possible abscess measuring 2.4 x 2.9 x 2.2 cm. There is surrounding edema. IMPRESSION: Site of lipoma removal there is a inflammatory complex lesion suggesting a phlegmon and/or abscess measuring 2.4 x 2.9 x 2.2 cm. There is surrounding edema.
== END | disposition home or self-care (01) ==
LOC: RAH 13:11
PROVIDERS: ATTEND Student in an Organized Health Care Education/Training Program
DX: E88.2 Lipomatosis, not elsewhere classified (principal); R60.0 Localized edema
CPT/HCPCS: 76882